=== PATIENT | female | born 1970 | race Caucasian/White ===

== ENCOUNTER 2017-10-26 17:32 | Emergency (ER) | payer BC, MEDICAID ==
[~2017-10-26] VITALS: Ht 157.5 cm; Wt 95.7 kg
[~2017-10-26 17:32] MED LIST: CIPRO500 MG PO; FENOFIBRATE145 M1 PO; MOT800 PO; NORCO1 TA2 PO; PROINH; PYRIDIUM200 MG PO; VITAMIN D2000 I3 PO
[2017-10-26 17:59] VITALS: Ht 157.5 cm; Wt 95.7 kg
[2017-10-26 21:02] VITALS: BP 115/67
== END 2017-10-26 21:03 | disposition home or self-care (01) ==
LOC: ED 17:32
DX: G89.29 Other chronic pain (principal); M54.9 Dorsalgia, unspecified
CPT/HCPCS: J0780; J1170

== ENCOUNTER 2017-11-08 05:14 | Emergency (ER) | payer BC, MEDICAID ==
[~2017-11-08] VITALS: Ht 160 cm; Wt 96.2 kg
[2017-11-08 05:17] VITALS: Ht 160 cm; Wt 96.2 kg
[2017-11-08 07:39] VITALS: BP 129/77
== END 2017-11-08 07:39 | disposition home or self-care (01) ==
LOC: ED 05:14
DX: M54.5 Low back pain (principal); G89.29 Other chronic pain
CPT/HCPCS: J1170; J1885; J3010

== ENCOUNTER 2018-08-26 15:37 | Emergency (ER) | payer SELFPAY ==
[~2018-08-26] VITALS: Ht 157.5 cm; Wt 97.7 kg
[2018-08-26 15:53] VITALS: Ht 157.5 cm; Wt 97.7 kg
[2018-08-26 18:21] LABS: BASOPHIL % 0.2 % (0-2); PLATELET COUNT 240 x10^3mcL (130-400)
[2018-08-26 18:22] LABS: RED CELL DISTRIBUTION WIDTH 16.2 % (11.5-14.5)
[2018-08-26 18:29] LABS: ALKALINE PHOSPHATASE 71 U/L (46-116); ALT/SGPT 11 U/L (14-59); AST/SGOT 17 U/L (15-37); BILIRUBIN TOTAL 0.3 mg/dL (0.20-1.00); CARBON DIOXIDE 22.6 mmol/L (21-32); CHLORIDE SERUM 105 mmol/L (98-107); CREATININE SERUM 0.6 mg/dL (0.6-1.0); GFR1 > 60 mL/min; GLUCOSE SERUM 97 mg/dL (74-106); LIPASE 80 IU/L (73-393); POTASSIUM SERUM 3.4 mmol/L (3.5-5.1); SODIUM SERUM 140 mmol/L (136-145)
[2018-08-26 18:31] LABS: ALBUMIN 3.3 g/dL (3.4-5.0)
[2018-08-26 18:52] LABS: CALCIUM 8.3 mg/dL (8.5-10.1)
[2018-08-26 22:16] VITALS: BP 122/80
== END 2018-08-26 22:16 | disposition home or self-care (01) ==
LOC: ED 15:37
PROVIDERS: Emergency Medicine
DX: G89.29 Other chronic pain (principal); M54.9 Dorsalgia, unspecified; M79.604 Pain in right leg; M79.605 Pain in left leg; M79.641 Pain in right hand; M79.642 Pain in left hand; J45.909 Unspecified asthma, uncomplicated; Z90.49 Acquired absence of other specified parts of digestive tract; Z87.442 Personal history of urinary calculi
CPT/HCPCS: 72072; 87804; J1885; J2270